=== PATIENT | male | born 1955 | race Caucasian/White ===

== ENCOUNTER 2016-09-12 13:19 | Outpatient (CLI) | payer OTHER ==
[2013-05-15 11:34] VITALS: O2SAT 99
== END 2016-09-12 13:20 | disposition home or self-care (01) | DRG 563 ==
LOC: CONVCARE 13:19
PROVIDERS: ATTEND Orthopaedic Surgery
DX: S62.525A Nondisplaced fracture of distal phalanx of left thumb, initial encounter for closed fracture (principal)
CPT/HCPCS: 87070; 87186

== ENCOUNTER 2016-09-26 11:54 | Outpatient (CLI) | payer OTHER ==
[2013-05-15 11:34] VITALS: O2SAT 99
== END 2016-09-26 11:55 | disposition home or self-care (01) | DRG 561 ==
LOC: CONVCARE 11:54
PROVIDERS: ATTEND Orthopaedic Surgery
DX: S62.511D Displaced fracture of proximal phalanx of right thumb, subsequent encounter for fracture with routine healing (principal)
CPT/HCPCS: 73140

== ENCOUNTER 2016-10-27 14:48 | Outpatient (CLI) | payer OTHER ==
[2013-05-15 11:34] VITALS: O2SAT 99
== END 2016-10-27 14:49 | disposition home or self-care (01) | DRG 561 ==
LOC: CONVCARE 14:48
PROVIDERS: ATTEND Orthopaedic Surgery
DX: S62.524D Nondisplaced fracture of distal phalanx of right thumb, subsequent encounter for fracture with routine healing (principal)
CPT/HCPCS: 73140